=== PATIENT | female | born 1985 | race Caucasian/White ===

== ENCOUNTER 2020-08-30 20:54 | Emergency (ER) | payer OTHER ==
[~2020-08-30] VITALS: Ht 165.1 cm; Wt 48.5 kg
[2020-08-31] MEDS ORDERED: PROTONIX40 MG PO (03:37)
[2020-08-31] MEDS ORDERED: PEPCID40 MG PO (03:37)
== END 2020-08-31 04:15 ==
LOC: ER 20:54
DX: S30.1XXA Contusion of abdominal wall, initial encounter (principal); Z20.828 Contact with and (suspected) exposure to other viral communicable diseases; K29.60 Other gastritis without bleeding; W18.09XA Striking against other object with subsequent fall, initial encounter; Y93.89 Activity, other specified; Y92.89 Other specified places as the place of occurrence of the external cause; Y99.8 Other external cause status